=== PATIENT | male | born 1960 | race Caucasian/White ===

== ENCOUNTER 2017-10-10 06:00 | Day surgery (SDC) | payer OTHER ==
[2017-10-10] MEDS ORDERED: PROPOFOL 40 ML (09:30)
== END 2017-10-10 17:19 | disposition home or self-care (01) ==
LOC: GIL 06:00
DX: K29.50 Unspecified chronic gastritis without bleeding (principal); D12.2 Benign neoplasm of ascending colon; K64.4 Residual hemorrhoidal skin tags; E11.9 Type 2 diabetes mellitus without complications; I10 Essential (primary) hypertension; I50.9 Heart failure, unspecified
CPT/HCPCS: 43239; 82962; 88305; 88312; 88313